=== PATIENT | male | born 1960 | race Caucasian/White ===

== ENCOUNTER 2020-06-25 11:05 | Outpatient (CLI) | payer BC, SELFPAY ==
[2020-06-25 11:57] LABS: Cholesterol 126 mg/dL (0-200); HDL Direct 40 mg/dL; Triglycerides 69 mg/dL (<150)
[2020-06-25 12:08] LABS: LDL Cholesterol Direct 67 mg/dL
== END 2020-06-25 11:06 | disposition home or self-care (01) ==
LOC: ANHLAB 11:08
PROVIDERS: Visit Provider Internal Medicine Cardiovascular Disease
DX: E78.5 Hyperlipidemia, unspecified (principal)
CPT/HCPCS: 36415; 80061

== ENCOUNTER 2020-12-10 09:48 | Outpatient (CLI) | payer BC, SELFPAY ==
[2020-12-10 10:26] LABS: Basophils Absolute Auto 0.1 K/mm3 (0.0-0.1); Basophils Percent Auto 0.7 % (0.2-1.2); Eosinophils Absolute Auto 0.1 K/mm3 (0-0.3); Eosinophils Percent Auto 1.2 % (0-4.4); Hematocrit 48.4 % (42.0-52.0); Hemoglobin 16.5 g/dL (14.0-18.0); Immature Granulocyte Absolute 0.06 K/mm3 (0.00-0.031); Immature Granulocyte Percent A 0.7 % (0-0.5); Lymphocytes Absolute Auto 1.65 K/mm3 (0.9-3.2); Lymphocytes Percent Auto 20.1 % (18.3-44.2); Mean Corpuscular HGB Conc 34.1 g/dl (32-36); Mean Corpuscular Hemoglobin 31.7 pg (26-34); Mean Corpuscular Volume 92.9 fl (80-100); Mean Platelet Volume 9.6 fl (7.4-10.4); Monocytes Absolute Auto 0.6 K/mm3 (0.1-0.6); Monocytes Percent Auto 7.8 % (2.6-8.5); Neutrophils Absolute Auto 5.7 K/mm3 (1.3-6.7); Neutrophils Percent Auto 69.5 % (45.5-73.1); Platelet Count Result 329 k/mm3 (150-375); Red Blood Count 5.21 M/mm3 (4.6-6.20); Red Cell Distribution Width 11.6 % (11.5-14.5); White Blood Count 8.2 K/mm3 (4.5-10.0)
[2020-12-10 10:33] LABS: Anion Gap 8 mmol/L (8-16); Blood Urea Nitrogen 17 mg/dL (9-20); Calcium 9.1 mg/dL (8.4-10.2); Carbon Dioxide 27 mmol/L (22-30); Chloride 108 mmol/L (98-107); Estimated Glomerular Filt Rate > 60; Glucose 111 mg/dL (75-110); Potassium 4.6 mmol/L (3.4-5.0); Sodium 143 mmol/L (137-145)
== END 2020-12-10 09:49 | disposition home or self-care (01) ==
PROVIDERS: Visit Provider Internal Medicine Cardiovascular Disease
DX: I10 Essential (primary) hypertension (principal); Z95.2 Presence of prosthetic heart valve
CPT/HCPCS: 36415; 80048; 85025

== ENCOUNTER 2022-04-14 10:50 | Outpatient (CLI) | payer BC, SELFPAY ==
[2022-04-14] VITALS (13 sets, daily range): BP systolic 111–154; BP diastolic 70–94; PULSE 59–65; RESP 13–28; TEMP 36.6; O2SAT 91–95; BMI 33.1
--- NOTE | 2022-04-14 11:32 | WPDHPUPDATE1 ---
History and Physical Update Update Date/Time: 04/14/22 11:32 History and Physical has been reviewed, including an updated exam of the patient. There are NO changes in the patient's condition. Risks, benefits, and alternatives have been discussed and questions answered. Patient agrees to proceed with procedure.
--- NOTE | 2022-04-14 11:33 | P.SEDATION_ITS ---
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 Impression/plan of care SANDIE to reassess bioprosthetic aortic valve given history of culture negative endocarditis and symptoms concern for possible infection. Reduce statin therapy as tolerated, aspirin daily Follow up with Neurology with regard to possible side effects of antiepileptic medications. Further recommendations to follow post SANDIE. Procedure to be performed/Plan: transesophageal echocardiogram Allergies Allergy/AdvReac Type Severity Reaction Status Date / Time Penicillins Allergy Unknown PT DOESNT Verified 04/14/22 11:31 REMEMBER Home Medications Medication Instructions Recorded Confirmed Type aspirin 81 mg tablet 81 mg PO DAILY 04/11/22 04/11/22 History lamotrigine 25 mg tablet 100 mg PO BID 04/11/22 04/11/22 History omeprazole 20 mg capsule,delayed 20 mg PO DAILY 04/11/22 04/11/22 History release tadalafil 20 mg tablet 20 mg PO DAILY 04/11/22 04/11/22 History tamsulosin 0.4 mg capsule 0.4 mg PO DAILY 04/11/22 04/11/22 History Sedation/Anesthesia: No previous sedation/anesthesia problems (including family history). [facility] Social History Social History Smoking status: Never smoker Alcohol intake: former Substance use type: does not use Living arrangements: with family Spiritual care concerns: No Comments Past medical history: History of aortic valve replacement, history of endocarditis, stroke Past surgical history: Bioprosthetic aortic valve replacement Family history: No history of premature atherosclerosis or sudden cardiac , otherwise not relevant at this time. Mod Sed Physical Exam Physical Exam Pre Procedural Exam: Normal: Appearance, Eyes, Ears, Nose, Neck ( supple, normal range of motion), Throat ( posterior hypopharynx clear, nonerythematous), Airway ( Normal anatomy, no obstruction), Lungs, Heart Size, Heart Rate, Heart Rhythm, Neuro Exam, Abdomen, Liver, Extremities and Skin Hours since solid foods: 12 Hours since liquid intake: 12 Mallampati Classification: class II ASA Classification/Sedation ASA Classification/Sedation ASA Class: III Emergent: No Risks: Risks, benefits and alternatives explained and patient/family accepted plan for sedation. Patient re-evaluated immediately prior to sedation.
--- NOTE | 2022-04-14 11:42 | WPDTEECHO ---
SANDIE TransEsophageal Echocardiogram Date of procedure: 04/14/22 Procedure Type: transesophageal echocardiogram Findings: Brief history present illness: Patient is a pleasant 61-year-old male with a history of hypertension, hyperlipidemia, aortic bioprosthesis status post CVA, history of seizure referred for for transesophageal echocardiogram for further evaluation for given complaints of night sweats, fatigue similar to his prior endocarditis. Procedure in detail: After verbal and written informed consent was obtained the patient risks, benefits, and alternatives explained in detail the patient agreed to proceed with the plan of care as outlined above. The patient was evaluated at bedside in the [facility] procedure room. The posterior oropharynx, neck, and jaw angle all within normal limits on examination. Lungs were clear to auscultation. See pre-sedation note for further details The patient was then placed in the appropriate 30 to 45 degree angle supine position at a slight left lateral decubitus position. Patient was monitored throughout the study with telemetry, oxygen saturation, end-tidal CO2 monitoring, blood pressure, heart rate, and respirations. The posterior hypopharynx was then locally anesthetized using repeated administration of Hurricaine spray as well as gargled viscous lidocaine. After local anesthetic of the posterior hypopharynx was achieved and the oral bite block placed, moderate sedation was administered. After confirmation of adequate moderate sedation, the transesophageal echocardiogram probe was advanced through the oral bite block into the posterior hypopharynx and into the esophagus easily and without complication. Multiple, multiplanar echocardiographic images were obtained in multiple standard re- projections. Pulsed wave, continuous-wave, and color-flow Doppler were utilized in conjunction with this study. At the conclusion of the study, the transesophageal echocardiogram probe was removed easily and without complication. The patient tolerated the procedure well without difficulty. Patient was in sinus rhythm throughout the study. Moderate Sedation/Anesthesia administration: Patient reports no prior problems with sedation/anesthesia. Please see pre-sedation noted for physical examination documentation. As noted above, after adequate local anesthesia of the posterior hypopharynx was achieved, a total of 3 mg intravenous Versed and a total of 75 mcg intravenous Fentanyl in multiple divided doses was administered for moderate sedation. Sedation start time was 1210 and end time was 1240 for a total intra-service/procedure face-face time of 30 minutes. Sedation was administered by a qualified/certified observer Bree Stack RN under my supervision with intra-procedure [id number] observation and management throughout the entirety of the procedure. There were no other issues or complications and patient tolerated the procedure well. See post-anesthesia documentation. FINDINGS: LEFT VENTRICLE: Size and systolic function were within normal limits without wall motion abnormalities with ejection fraction of 60%. Mild LVH. RIGHT VENTRICLE: Size and systolic function within normal limits. LEFT ATRIUM: Mild left atrial enlargement. RIGHT ATRIUM: Normal size. INTERATRIAL SEPTUM: Interatrial septum is anatomically normal without evidence of shunt with color-flow Doppler (although previously documented small ASD vs PFO with agitated saline). MITRAL VALVE: Mitral valve is anatomically normal with preserved leaflet excursion, mildly thickened leaflets and mild to moderate regurgitation with a lease 3 small regurgitant jets. AORTIC VALVE: There was a bioprosthesis in the aortic valve position that was well seated with preserved leaflet excursion and no valvular or imer-valvular leak identified. No evidence of abscess or instability. No regurgitation of the aortic valve is observed. No mobile echodensities are appreciat
== END 2022-04-14 14:13 | disposition home or self-care (01) ==
LOC: ANHCARD 10:51
PROVIDERS: Visit Provider Internal Medicine Cardiovascular Disease
PROC: (CPT 93312; principal; 2022-04-14 11:30)
DX: I77.819 Aortic ectasia, unspecified site (principal); I10 Essential (primary) hypertension; E78.2 Mixed hyperlipidemia; G40.909 Epilepsy, unspecified, not intractable, without status epilepticus; Z95.1 Presence of aortocoronary bypass graft; R50.9 Fever, unspecified; R61 Generalized hyperhidrosis; R53.1 Weakness
CPT/HCPCS: 93312; 93320; 93325; J2250; J3010